=== PATIENT | male | born 1995 | race Two or more races ===

== ENCOUNTER 2024-12-26 23:16 | Emergency (ER) | payer MEDICAID, OTHER ==
[~2024-12-26] VITALS: Ht 175.3 cm; Wt 81.0 kg
[2024-12-27 00:14] LABS: Hematocrit 42.0 % (41.0-53.0); Hemoglobin 14.8 g/dL (13.5-17.5); Mean Corpuscular Hemoglobin 32.4 pg (28.0-32.0); Mean Corpuscular Volume 91.9 fL (80.0-100.0); Nucleated Red Blood Cells % 0.1 %
[2024-12-27 00:29] LABS: Alanine Aminotransferase 22 U/L (7-40); Albumin 4.5 g/dL (3.2-4.8); Alkaline Phosphatase 104 U/L (46-116); Anion Gap 8 (5-15); BUN/Creatinine Ratio 15.1 (10.0-20.0); Bilirubin, Total 1.0 mg/dL (0.2-1.0); Blood Urea Nitrogen 13 mg/dL (9-23); Calcium 10.2 mg/dL (8.7-10.4); Carbon Dioxide 27 mmol/L (20-31); Chloride 107 mmol/L (98-107); Potassium 3.9 mmol/L (3.5-5.1); Sodium 142 mmol/L (136-145); Total Protein 7.1 g/dL (5.7-8.2)
[2024-12-27 00:32] LABS: Acetaminophen < 2.0 UG/ML (10.0-20.0)
[2024-12-27 00:35] LABS: Glucose 110 mg/dL (74-106)
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
[2024-12-27 01:11] LABS: Salicylate < 3.0 mg/dL (-30)
[2024-12-27 08:22] VITALS: PULSE 83; RESP 16; O2SAT 96
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
[2024-12-27 15:21] LABS: Amphetamine Screen, Urine Neg (NEGATIVE); Barbiturate Scree,Urine Neg (NEGATIVE); Benzodiazephine Screen, Urine Neg (NEGATIVE); Cannabinoid Screen, Urine Neg (NEGATIVE); Cocaine Screen, Urine Neg (NEGATIVE); Opiate Scree,Urine Neg (NEGATIVE); Phencyclidine Screen, Urine Neg (NEGATIVE)
[2024-12-27 15:43] LABS: Urine Protein, UAD Negative (Negative)
[2024-12-27] MEDS: LORazepam 0.5 MG TAB PO ONE (18:10)
[2024-12-28 08:16] VITALS: BP 130/85; PULSE 77; RESP 16; TEMP 98.9; O2SAT 99
== END 2024-12-28 08:29 | disposition short-term general hospital (02) ==
LOC: EDBD 23:16 → ER 23:16
DX: R45.851 Suicidal ideations (principal); F20.9 Schizophrenia, unspecified; F31.9 Bipolar disorder, unspecified; Z91.51 Personal history of suicidal behavior; Z90.49 Acquired absence of other specified parts of digestive tract; Z89.612 Acquired absence of left leg above knee; Z59.00 Homelessness unspecified; Z79.899 Other long term (current) drug therapy
CPT/HCPCS: 36415; 80053; 80307; 80320; 80329; 81001; 85025